=== PATIENT | male | born 1980 | race Caucasian/White ===

== ENCOUNTER 2021-09-17 11:40 | Emergency (ER) | payer OTHER ==
[~2021-09-17] VITALS: Ht 175.3 cm; Wt 102.1 kg
[~2021-09-17 11:40] MED LIST: CYCL10 PO; NAPR500 PO
[2021-09-17] MEDS ORDERED: GABA300 PO (12:45)
== END 2021-09-17 13:00 | disposition home or self-care (01) ==
LOC: ER 11:40
DX: M79.2 Neuralgia and neuritis, unspecified (principal)
CPT/HCPCS: J1885

== ENCOUNTER 2024-04-22 11:31 | Day surgery (SDC) | payer OTHER ==
[~2024-04-22] VITALS: Ht 175.3 cm; Wt 92.7 kg
[~2024-04-22 11:31] MED LIST changes: +GABA300 PO; +NS 500 ML IV ONE
[2024-04-22] MEDS ORDERED: LOSARTAN-HCTZ1 EACH PO (11:58)
[2024-04-22] MEDS ORDERED: ATOR40TA PO (11:58)
[2024-04-22 12:11] VITALS: BP 136/94
--- NOTE | 2024-04-22 12:24 | NUR ---
04/22/24 1224 Chuyita Johnson PT'S HGBA1C ON 04/16/2024 WAS 10.4% AND GLUCOSE WAS 434. TODAY'S BLOOD SUGAR WAS 340. PT IS NOT CURRENTLY ON ANY DIABETIC MEDICATIONS AND STATES HE HAS AN APPT WITH PCP SOON TO DISCUSS PT STARTING ON INSULIN. DR BUSTAMANTE CAME TO ROOM AND SPOKE TO PATIENT. CASE CANCELLED AND TO BE RESCHEDULED ONCE PATIENT IS ON DIABETIC MEDICATION.
== END 2024-04-22 12:17 | disposition home or self-care (01) ==
LOC: ORSCSDS 11:31
DX: R22.42 Localized swelling, mass and lump, left lower limb (principal); Z53.9 Procedure and treatment not carried out, unspecified reason
CPT/HCPCS: 82947; J7040

== ENCOUNTER 2025-01-06 07:41 | Emergency (ER) | payer OTHER ==
[~2025-01-06] VITALS: Ht 175.3 cm; Wt 83.9 kg
[~2025-01-06 07:41] MED LIST changes: +ATOR40TA PO; +LOSARTAN-HCTZ1 EACH PO; -NS 500 ML IV ONE
[2025-01-06 08:47] VITALS: BP 157/94
[2025-01-06] MEDS ORDERED: Ketorolac Tromethamine 30mg Vial IM ONE (09:15)
[2025-01-06] MEDS ORDERED: CYCL10 PO (10:21)
[2025-01-06] MEDS ORDERED: Norco 5-325 Ta1 EACH PO (10:21)
== END 2025-01-06 10:40 | disposition home or self-care (01) ==
LOC: ER 07:41
DX: S39.012A Strain of muscle, fascia and tendon of lower back, initial encounter (principal); R73.03 Prediabetes; Z79.899 Other long term (current) drug therapy; Z59.89 Other problems related to housing and economic circumstances; X50.0XXA Overexertion from strenuous movement or load, initial encounter
CPT/HCPCS: 96372; 99283-25; J1885